=== PATIENT | male | born 1990 | race Two or more races ===

== ENCOUNTER → 2023-05-06 | Outpatient (CLI) | payer BC ==
[2023-05-06 12:44] LABS: Urine Bacteria NONE SEEN /hpf (None Seen); Urine Blood Negative /uL (Negative); Urine Clarity Clear (Clear); Urine Protein, UAD Negative (Negative); Urine Urobilinogen Normal (Negative); Urine WBC <1 /hpf (0 - 3)
[2023-05-06 12:45] LABS: Basophils # (auto) 0 10 ^3/uL (0-0.2); Basophils % (auto) 0.4 % (0.0-2.0); Eosinophils # (auto) 0.1 10 ^3/uL (0-0.8); Hematocrit 46.5 % (41.0-53.0); Hemoglobin 15.4 g/dL (13.5-17.5); Lymphocytes # (auto) 1.2 10 ^3/uL (0.4-5.4); Lymphocytes % (auto) 20.6 % (10.0-50.0); Mean Corpuscular Hemoglobin 29.7 pg (28.0-32.0); Mean Corpuscular Hgb Conc. 33.1 g/dL (32.0-36.0); Mean Corpuscular Volume 89.9 fL (80.0-100.0); Monocytes # (auto) 0.3 10 ^3/uL (0-1.3); Monocytes % (auto) 5.9 % (0.0-12.0); Neutrophils % (auto) 71.1 % (37.0-80.0); Nucleated Red Blood Cells % 0.1 %; Red Blood Cells 5.17 10^6/uL (4.5-5.90); Red Cell Distribution Width 12.9 % (11.8-14.3); Urine Color Straw (Yellow); White Blood Cell 5.7 10^3/uL (4.4-10.8)
[2023-05-06 13:11] LABS: Alanine Aminotransferase 21 U/L (7-40); Albumin 4.5 g/dL (3.2-4.8); Alkaline Phosphatase 103 U/L (46-116); Anion Gap 5 (5-15); Aspartate Aminotransferase 17 U/L (13-40); BUN/Creatinine Ratio 5.6 (10.0-20.0); Blood Urea Nitrogen 7 mg/dL (9-23); Calcium 9.2 mg/dL (8.7-10.4); Carbon Dioxide 27 mmol/L (20-30); Chloride 108 mmol/L (98-107); Glucose 97 mg/dL (74-106); Magnesium 1.9 mg/dL (1.6-2.6); Potassium 3.8 mmol/L (3.5-5.1); Sodium 140 mmol/L (136-145)
[2023-05-06 13:12] LABS: Bilirubin, Total 0.8 mg/dL (0.2-1.0)
[2023-05-06 13:14] LABS: Free T3 3.16 pg/mL (2.3-4.2); Free T4 (Free Thyroxine) 0.79 ng/dL (0.89-1.76)
[2023-05-06 13:22] LABS: Triglycerides 61 mg/dL (< 150)
[2023-05-06 13:23] LABS: LDL Cholesterol 107 mg/dL (< 100)
[2023-05-06 13:24] LABS: Cholesterol 168 mg/dL (< 200); HDL Cholesterol 49 mg/dL (40-59)
== END | disposition home or self-care (01) ==
LOC: LAB 12:16
PROVIDERS: ATTEND Nurse Practitioner Gerontology
DX: Z00.01 Encounter for general adult medical examination with abnormal findings (principal)
CPT/HCPCS: 36415; 80053; 80061; 81001; 83036; 83735; 84439; 84443; 84481; 85025; 87086

== ENCOUNTER 2023-09-01 06:11 | Day surgery (SDC) | payer BC ==
[2023-08-27 14:14] LABS: Urine Bacteria None Seen /hpf (None Seen)
[2023-08-27 14:18] LABS: Basophils # (auto) 0 10 ^3/uL (0-0.2); Basophils % (auto) 0.6 % (0.0-2.0); Eosinophils # (auto) 0.3 10 ^3/uL (0-0.8); Eosinophils % (auto) 4.4 % (0.0-7.0); Hematocrit 48.8 % (41.0-53.0); Hemoglobin 16.4 g/dL (13.5-17.5); Lymphocytes # (auto) 1.5 10 ^3/uL (0.4-5.4); Lymphocytes % (auto) 20.6 % (10.0-50.0); Mean Corpuscular Hemoglobin 30.2 pg (28.0-32.0); Mean Corpuscular Hgb Conc. 33.5 g/dL (32.0-36.0); Mean Corpuscular Volume 90.2 fL (80.0-100.0); Monocytes # (auto) 0.4 10 ^3/uL (0-1.3); Monocytes % (auto) 5.9 % (0.0-12.0); Neutrophils # (auto) 4.9 10 ^3/uL (1.6-8.6); Neutrophils % (auto) 68.5 % (37.0-80.0); Nucleated Red Blood Cells % 0.3 %; Red Blood Cells 5.41 10^6/uL (4.5-5.90); Red Cell Distribution Width 13.4 % (11.8-14.3); White Blood Cell 7.2 10^3/uL (4.4-10.8)
[2023-08-27 14:38] LABS: INR 1.03 (0.9-1.15); Partial Thromboplastin Time 27.6 SEC (24.5-34.5); Prothrombin Time 10.9 sec (9.3-11.8)
[2023-08-27 14:42] LABS: Alanine Aminotransferase 24 U/L (7-40); Albumin 4.9 g/dL (3.2-4.8); Alkaline Phosphatase 105 U/L (46-116); Anion Gap 6 (5-15); Aspartate Aminotransferase 17 U/L (13-40); Blood Urea Nitrogen 9 mg/dL (9-23); Calcium 9.7 mg/dL (8.5-10.1); Carbon Dioxide 29 mmol/L (20-30); Chloride 106 mmol/L (98-107); Glucose 112 mg/dL (74-106); Potassium 3.7 mmol/L (3.5-5.1); Sodium 141 mmol/L (136-145)
[2023-08-27 14:43] LABS: Bilirubin, Total 1.3 mg/dL (0.2-1.0); Total Protein 7.7 g/dL (5.7-8.2)
[2023-08-27 15:17] LABS: Urine Blood Negative /uL (Negative); Urine Clarity Clear (Clear); Urine Color Yellow (Yellow); Urine Mucus FEW (None Seen); Urine Protein, UAD TRACE (Negative); Urine Specific Gravity 1.027 (1.001-1.035); Urine Urobilinogen 3 mg/dL (Negative); Urine WBC 1 /hpf (0 - 3)
[~2023-09-01] VITALS: Ht 175.3 cm; Wt 98.0 kg
[2023-09-01] MEDS ORDERED: LIDOCAINE W/ EPINEPHRINE 1% 20ML VIAL ONE (06:51)
[2023-09-01] MEDS ORDERED: ROCURONIUM 10MG/ML 10ML VIAL IV ONE (06:55)
[2023-09-01] MEDS ORDERED: SUCCINYLCHOLINE CHLORIDE 20 MG/ML 10ML VIAL IV ONE (06:55)
[2023-09-01] MEDS ORDERED: DOXAPRAM HCL 20 MG/ML 20ML VIAL INJ IV ONE (06:55)
[2023-09-01] MEDS ORDERED: BACITRACIN TOP OINT 1 UD PKG TOP ONE (07:06)
[2023-09-01] MEDS ORDERED: DexAMETHasone SOD PHOS 10MG/1ML VIAL INJ ONE (07:08)
[2023-09-01] MEDS ORDERED: ONDANSETRON HCL 4 MG/2 ML VIAL ONE (07:08)
[2023-09-01] MEDS ORDERED: SODIUM CHLORIDE LOCK 10 ML ONE (07:08)
[2023-09-01] MEDS ORDERED: PROPOFOL 10 MG/ML 20 ML IV ONE (07:08)
[2023-09-01] MEDS ORDERED: KETAMINE 50mg/ML 1ml syringe ONE (07:08)
[2023-09-01] MEDS ORDERED: MIDAZOLAM HCL 2MG/2ML 2ml VIAL (1mg/ml) ONE (07:08)
[2023-09-01] MEDS ORDERED: fentaNYL CITRATE 100 MCG/2 ML VL ONE (07:08)
[2023-09-01] MEDS ORDERED: MORPHINE SULFATE INJ 2 MG/ml SYRG IV PRN (07:15)
[2023-09-01] MEDS ORDERED: METOCLOPRAMIDE HCL 5MG/ml INJ 2ml VIAL IV ONE (07:15)
[2023-09-01] MEDS ORDERED: HYDROmorphone HCL 2 MG/ML VL/or syr IV PRN ×2 (07:15)
[2023-09-01] MEDS ORDERED: ceFAZolin 2 GM/D5W50ml 50 ML IV ONE (07:26)
[2023-09-01 08:14] VITALS: TEMP 97.2; O2SAT 95
[2023-09-01 09:00] VITALS: BP 101/61; PULSE 69; RESP 17; O2SAT 97
== END 2023-09-01 09:14 | disposition home or self-care (01) ==
LOC: SUR 06:11
PROVIDERS: ATTEND Urology
DX: Z30.2 Encounter for sterilization (principal); N18.2 Chronic kidney disease, stage 2 (mild); E66.01 Morbid (severe) obesity due to excess calories; Z79.899 Other long term (current) drug therapy; Z98.890 Other specified postprocedural states; Z68.31 Body mass index [BMI] 31.0-31.9, adult
CPT/HCPCS: 36415; 55250; 80053; 81001; 85025; 85610; 85730; 87086; 88305; J0330; J0690; J1100; J2250; J2405; J2704; J3010

== ENCOUNTER 2024-01-15 18:27 | Emergency (ER) | payer BC ==
[~2024-01-15] VITALS: Ht 170.2 cm; Wt 94.0 kg
[2024-01-15 19:16] LABS: Urine Bacteria None Seen /hpf (None Seen)
[2024-01-15 19:27] LABS: Urine Blood Negative /uL (Negative); Urine Clarity Clear (Clear); Urine Color Light-Yellow (Yellow); Urine Mucus FEW (None Seen); Urine Protein, UAD Negative (Negative); Urine Specific Gravity 1.023 (1.001-1.035); Urine Urobilinogen Normal (Negative); Urine WBC 1 /hpf (0 - 3)
[2024-01-15] MEDS: KETOROLAC TROMETH 60MG/2ML VIAL IM ONE (20:32)
[2024-01-15] MEDS ORDERED: IBUP-1455 PO (21:42)
[2024-01-15] MEDS ORDERED: ACET500T58 PO (21:42)
[2024-01-15 22:23] VITALS: BP 118/64; PULSE 58; RESP 18; TEMP 97.6; O2SAT 98
== END 2024-01-15 22:28 | disposition home or self-care (01) ==
LOC: ER 18:27
DX: N50.812 Left testicular pain (principal)
CPT/HCPCS: 76870; 81001; 96372; 99285; J1885

== ENCOUNTER 2024-01-18 18:35 | Emergency (ER) | payer BC, OTHER ==
[~2024-01-18] VITALS: Ht 170.2 cm; Wt 94.1 kg
[~2024-01-18 18:35] MED LIST: ACET500T58 PO; IBUP-1455 PO
[2024-01-18 22:11] VITALS: BP 106/64; PULSE 71; RESP 18; TEMP 98.1; O2SAT 97
[2024-01-18 23:53] LABS: Urine Bacteria None Seen /hpf (None Seen); Urine WBC None Seen /hpf (0 - 3)
[2024-01-19] LABS: Urine Blood Negative /uL (Negative); Urine Clarity Clear (Clear); Urine Color Light-Yellow (Yellow); Urine Protein, UAD Negative (Negative); Urine Specific Gravity 1.008 (1.001-1.035); Urine Urobilinogen Normal (Negative)
[2024-01-19] MEDS ORDERED: LEVO500T91 PO (00:08)
[2024-01-19] MEDS: levoFLOXacin 500 MG TAB PO ONE (00:28)
== END 2024-01-19 00:52 | disposition home or self-care (01) ==
LOC: ER 18:35
DX: N50.812 Left testicular pain (principal); N45.1 Epididymitis; Z79.899 Other long term (current) drug therapy
CPT/HCPCS: 76870; 81001